=== PATIENT | male | born 1955 | race Caucasian/White ===

== ENCOUNTER 2020-06-13 07:35 | Outpatient (CLI) | payer MEDICARE, OTHER | END 2020-06-13 07:36 | disposition home or self-care (01) | LOC: CSHCT 07:35 | PROVIDERS: ATTEND Neurological Surgery | DX: G91.2 (Idiopathic) normal pressure hydrocephalus (principal); Z98.2 Presence of cerebrospinal fluid drainage device | CPT/HCPCS: 70450 ==

== ENCOUNTER 2022-03-13 09:04 | Outpatient (CLI) | payer MEDICARE, OTHER | END 2022-03-13 09:05 | disposition home or self-care (01) | LOC: CSHULT 09:04 | PROVIDERS: ATTEND Family Medicine Sports Medicine | DX: Z13.6 Encounter for screening for cardiovascular disorders (principal) | CPT/HCPCS: 76706 ==

== ENCOUNTER 2025-03-15 09:59 | Emergency (ER) | payer MEDICARE, OTHER ==
[2025-03-15 11:46] LABS: #Basophils Less than 0.03 10x3/uL (0.0-0.2); #Eosinophils 0.04 10x3/uL (0.0-0.5); #Monocytes 0.66 10x3/uL (0.0-1.1); #Neutrophils 6.38 10x3/uL (1.5-8.4); %Basophils 0.1 % (0.0-2.0); %Eosinophils 0.5 % (0.0-6.0); %Lymphocytes 16.1 % (18.0-47.0); %Monocytes 7.8 % (0.0-10.0); %Neutrophils 75.0 % (40.0-75.0); Hematocrit 42.0 % (38.8-50.0); Hemoglobin 15.0 g/dL (13.5-17.5); Mean Corpuscular Hemoglobin 33.3 pg (27.0-33.0); Mean Corpuscular Volume 93.1 fL (81.2-95.1); Platelet Count 181 10x3/uL (150-450); Red Blood Cell (RBC) Count 4.51 10x6/uL (4.32-5.72); White Blood Cell (WBC) Count 8.50 10x3/uL (3.5-10.5)
[2025-03-15 11:52] LABS: INR-International Normal Ratio 1.0; PTT 23.9 sec (22.0-33.0); Prothrombin Time 11.3 sec (9.5-12.1)
[2025-03-15 11:58] LABS: ALT (SGPT) 24 U/L (Less than 45); AST (SGOT) 13 U/L (11-34); Albumin 4.5 g/dL (3.1-4.5); Alkaline Phosphatase 75 U/L (40-110); Anion Gap 15 mmol/L (10-20); BUN (Urea Nitrogen) 28 mg/dL (8.4-25.7); Bilirubin, Total 1.2 mg/dL (0.3-1.2); Calc. Creatinine Clearance 0 mL/min (70-130); Calcium 9.8 mg/dL (7.8-10.44); Carbon Dioxide 25 mmol/L (23-31); Chloride 96 mmol/L (98-107); Globulin 2.8 g/dL (2.4-3.5); Glucose 254 mg/dL (83-110); Potassium 3.9 mmol/L (3.5-5.1); Sodium 132 mmol/L (136-145)
[2025-03-15 13:41] LABS: Troponin I 0.024 ng/mL (< 0.028)
== END 2025-03-15 14:07 | disposition home or self-care (01) ==
LOC: CSHERS 09:59
DX: R42 Dizziness and giddiness (principal); R11.0 Nausea; R29.700 NIHSS score 0; E11.9 Type 2 diabetes mellitus without complications; I10 Essential (primary) hypertension
CPT/HCPCS: 36415; 70450; 80053; 83880; 84484; 85025; 85610; 85730; 93005; 96360